=== PATIENT | male | born 1965 | race Two or more races ===

== ENCOUNTER 2024-05-01 23:28 | Emergency (ER) | payer MEDICAID, SELFPAY ==
[2024-05-02 00:04] VITALS: BP 139/80; PULSE 80; RESP 18; TEMP 37; O2SAT 98
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
[2024-05-02] MEDS: CYCLObenzaPRINE 5 MG TABLET PO (00:46)
[2024-05-02] MEDS: ACETAMINOPHEN 325 MG TABLET 650 MG PO (00:46)
[2024-05-02] MEDS: LIDOCAINE 5% 1 PATCH TOP (00:47)
[2024-05-02 01:02] VITALS: RESP 18
== END 2024-05-02 01:02 | disposition home or self-care (01) ==
LOC: SERX 05-02 01:14
PROVIDERS: Emergency Provider Emergency Medicine
DX: S13.4XXA Sprain of ligaments of cervical spine, initial encounter (principal); M62.838 Other muscle spasm; M25.531 Pain in right wrist; V43.52XA Car driver injured in collision with other type car in traffic accident, initial encounter; E11.9 Type 2 diabetes mellitus without complications
CPT/HCPCS: 73110; 99283; J3490; A9270

== ENCOUNTER 2024-09-27 20:13 | Inpatient (IN) | payer MEDICAID, SELFPAY ==
[2024-09-27 20:41] VITALS: BP 121/74; PULSE 89; RESP 18; TEMP 37.9; O2SAT 95
--- NOTE | 2024-09-27 20:56 | XR_ITS ---
Examination: AP chest single view. TECHNIQUE: AP portable upright chest single view Date and time: September 27, 2024 2117 hours INDICATIONS: Fever chest pain and SOB today. FINDINGS: Normal heart size. No pneumonia or pulmonary edema. The osseous structures are intact IMPRESSION: No active disease.
--- NOTE | 2024-09-27 20:57 | EDNOTE_ITS ---
ED Male Genitalurinary RME/HPI General Chief complaint: Urogenital-Male Stated complaint: pain/blood during urination Time Seen by Provider: 09/27/24 20:52 Arrival date/time: 09/27/24 20:13 RME / HPI RME / HPI Narrative: See [facility] for Dr. Berry's HPI Documentation Related Data Home Medications ?Medication ?Instructions ?Recorded ?Confirmed metformin 1,000 mg tablet 1,000 mg PO BID 03/31/18 Previous Rx's ?Medication ?Instructions ?Recorded aspirin 81 mg tablet,delayed 81 mg PO QDAY #30 tabs release (Aspir-Low) metformin 1,000 mg tablet 1,000 mg PO BID #60 tabs ciprofloxacin HCl 500 mg tablet 500 mg PO BID #14 tabs 08/05/23 (Cipro) cyclobenzaprine 5 mg tablet 5 mg PO TID PRN muscle spa sm #14 05/02/24 tabs Allergies Allergy/AdvReac Type Severity Reaction Status Date / Time No Known Allergies Allergy Verified 05/01/24 23:31 Review of Systems Review of Systems Systems Reviewed: All systems reviewed, normal except as documented Past Medical History Past Medical History ENDOCRINE: Positive Endocrine Disorders and Diabetes Mellitus Type 2 ED Exam Narrative Physical exam: See MDM for Dr. Berry's Physical Exam Documentation. Course Course Course Narrative: CXR is ordered for determining the etiology of shortness of breath. Quality Measures none Orders Category Date Time Status Bedside COVID-19 Antigen Test NOW Care 09/27/24 20:54 Active Bedside Influenza A&B Antigen Test NOW Care 09/27/24 20:54 Completed COVID-19 Screening Questionnaire NOW Care 09/28/24 02:17 Active Decision to Admit X1 Care 09/28/24 02:17 Active Saline [Insert IV] NOW Care 09/27/24 20:[address] abdomen pelvis wo con Stat Exams 09/27/24 23:09 Completed XR chest 1V portable Stat Exams 09/27/24 20:56 Completed Bilirubin,Direct Stat Lab 09/27/24 21:39 Completed Blood Culture (Lab) Stat Lab 09/27/24 21:39 Received CBC Stat Lab 09/27/24 21:39 Completed CMP [Comprehensive Metabolic Panel] Stat Lab 09/27/24 21:39 Completed CRP [C-Reactive Protein] Stat Lab 09/27/24 21:39 Completed ESR [Sed Rate (ESR)] Stat Lab 09/27/24 21:39 Completed Lactate (Lactic Acid) Stat Lab 09/27/24 21:39 Completed Magnesium Stat Lab 09/27/24 21:39 Completed Procalcitonin Stat Lab 09/27/24 21:39 Completed Urinalysis, C/S if Indicated Stat Lab 09/27/24 21:06 Completed Urine Culture Stat Lab 09/27/24 21:06 Received Acetaminophen Tab [Tylenol Tab] Med 09/27/24 20:55 Discontinued 650 mg PO X1 ONE Ketorolac Inj [Toradol Inj] Med 09/27/24 20:55 Discontinued 30 mg IVP X1 ONE Ondansetron Inj [Zofran Inj] Med 09/27/24 20:55 Discontinued 4 mg IVP X1 ONE Sodium Chloride 0.9% 1000 ml [Ns] 1,000 ml Med 09/27/24 20:55 Discontinued IV 999 mls/hr Sodium Chloride 0.9% 1000 ml [Ns] 1,000 ml Med 09/27/24 23:10 Discontinued IV 999 mls/hr cefTRIAXone/D5w 1gm IV premix [Rocephin/D5w 1gm IV Med 09/27/24 20:55 Discontinued premix] 1 gm in 50 ml IV X1 Vital Signs Vital signs: Vital Signs Temperature 100.3 F 09/27/24 20:41 Pulse Rate 89 09/27/24 20:41 Respiratory Rate 18 09/27/24 20:41 Blood Pressure 121/74 09/27/24 20:41 Pulse Oximetry (%) 95 09/27/24 20:41 Oxygen Delivery Method Room Air 09/27/24 20:41 Urogenital - Male MDM Narrative MDM Narrative:: Scribe Attestation: IBetty, am scribing for and in the presence of Dr. Berry. This section includes all my notes and documentations, including HPI, PE, and ED course. Gil Berry MD HPI: 59 y/o male with Hx of Type II DM here with several days of subjective fever, chills, body aches, malaise, dysuria, hematuria, and flank pain. No other complaints. ROS: All negative except as documented in HPI. Physical Exam: General: Alert and oriented. Appearance no malaise noted. Fever noted. Eyes: Conjunctivae and lids clear. ENT: No nasal congestion. Pharynx normal. TM normal bilaterally. Neck: Supple. Heart: RRR. Lungs: No respiratory distress. Good air movement. No rhonchi, wheezing, rales. Abdomen: Soft and nontender. Normal bowel sounds. No distension. No rebound or guarding. Back: Right CVA tenderness. Skin: Warm and dry. Neuro: Alert and oriented X 3. I reviewed all diagnostic test results: My interpretation of the chest x-ray is: NAD. My review of the Abdomen/Pelvis CT report is: Right pyelonephritis. Blood tests remarkable for WBC 11.7, ESR 36, CRP 11.5, UA showed positive nitrite, positive leukocyte esterase, 44 RBC, 227 WBC. Covid/Influenza: Negative. At this point, diagnoses include: Pyelonephritis Treatment here included: IVF, Tylenol 650 mg, Toradol 30 mg, Zofran 4 mg, Rocephin 1 g. Some improvement noted. 0128: I discussed the case with our hospitalist. About the presentation and exam and diagnostics and treatments here. And need of further care in the hospital. Agreed to accept the patient. Gil Berry MD Patient data External records reviewed:: [facility] previous records (Reviewed prior ED records from 05/02/24. Patient was seen for Acute pain of right wrist.) Clinical information provided by:: patient and family (Daughter) Social determinants that could affect healthcare access:: none Patient has the following chronic illnesses:: Type II DM How is presenting disease/condition affected by chronic disease/condition?: exacerbated by Evaluation data The following diagnostics were reviewed and interpreted by me:: lab results and radiology exam(s) Lab and/or radiology exams considered but not ordered:: None Interpretation Summary: I reviewed all diagnostic test results: My interpretation of the chest x-ray is: NAD. My review of the Abdomen/Pelvis CT report is: Right pyelonephritis. Blood tests remarkable for WBC 11.7, ESR 36, CRP 11.5, UA showed positive nitrite, positive leukocyte esterase, 44 RBC, 227 WBC. Covid/Influenza: Negative. Medications / Prescriptions Medications or Prescriptions considered but not ordered:: None Medication administrations:: Medication Administration History Discontinued Medications Acetaminophen (Acetaminophen 325 Mg Tablet) 650 mg PO X1 ONE Stop: 09/27/24 20:56 Last Admin: 09/27/24 22:05 Dose: 650 mg Documented By: [email or web address] Sodium Chloride (Ns) 1,000 mls @ 999 mls/hr IV .Q1H1M ONE Stop: 09/27/24 21:55 Last Infusion: 09/27/24 23:22 Dose: Infused Documented By: [email or web address] Admin: 09/27/24 22:04 Dose: 999 mls/hr Documented By: GUERITA Ceftriaxone Sodium/Dextrose (Rocephin/D5w 1gm Iv Premix) 1 gm in 50 mls @ 100 mls/hr IV X1 ONE Stop: 09/27/24 21:24 Last Infusion: 09/27/24 22:34 Dose: Infused Documented By: [email or web address] Admin: 09/27/24 22:04 Dose: 100 mls/hr Documented By: [email or web address] Sodium Chloride (Ns) 1,000 mls @ 999 mls/hr IV .Q1H1M ONE Stop: 09/28/24 00:10 Last Infusion: 09/28/24 02:12 Dose: Infused Documented By: Admin: 09/28/24 00:37 Dose: 999 mls/hr Documented By: BD Ketorolac Tromethamine (Ketorolac Inj 30 Mg/Ml Vial) 30 mg IVP X1 ONE Stop: 09/27/24 20:56 Last Admin: 09/27/24 22:05 Dose: 30 mg Documented By: GUERITA Ondansetron HCl (Ondansetron Inj 2 Mg/Ml Inj 2 Ml) 4 mg IVP X1 ONE; Protocol Stop: 09/27/24 20:56 Last Admin: 09/27/24 22:05 Dose: 4 mg Documented By: [email or web address] IVF, Tylenol 650 mg, Toradol 30 mg, Zofran 4 mg, Rocephin 1 G Consultations Consultation(s) initiated? (list below): Yes Consultation #1 (Physician, Specialty, Details): I discussed the case with our hospitalist. About the presentation and exam and diagnostics and treatments here. And need of further care in the hospital. Agreed to accept the patient. Time: 01:28 Diagnosis Urogenital Male Differential Diagnosis: urinary tract infection, urethritis, epididymitis, prostatitis, acute retention of urine, inguinal hernia and other (Pneumonia, pyelonephritis, sepsis, COVID, influenza) Most likely diagnosis given after review of the tests above:: Acute Pyelonephritis Admission Indicated Admission indicated?: indicated Explain why admission is indicated or not indicated:: Acute Pyelonephritis Admission Request Was there a request for admission?: Yes Admission Attestation Admission request attestation: Discussed case with Hospitalist service regarding admission. Discussed patients ED course, exam findings, labs, and radiology results. Agreed to accept the patient for admission. Disposition Plan Disposition Plan: Admit Discharge Plan Plan Patient Disposition: Admit Acute Care w/in Hospital Prescriptions/Referrals Prescriptions/Med Rec: No Action metformin 1,000 mg Tablet 1,000 mg PO BID aspirin [Aspir-Low] 81 mg Tablet,Delayed Release (Dr/Ec) 81 mg PO QDAY Qty: 30 0RF metformin 1,000 mg tablet 1,000 mg PO BID Qty: 60 0RF cyclobenzaprine 5 mg tablet 5 mg PO TID PRN (Reason: muscle spasm) Qty: 14 0RF ciprofloxacin HCl [Cipro] 500 mg tablet 500 mg PO BID Qty: 14 0RF Referrals: No Primary/Family,Physician [Primary Care Provider] - In 1 week Problem List Clinical Impression: Acute pyelonephritis Patient/Caregiver Discharge Instructions Print Language: Uzbek Stand Alone Forms: Marie Award Info., Patient Portal Info Letter
[2024-09-27 21:33] LABS: Collection Type, Urine Clean Catch
[2024-09-27 21:43] LABS: Bilirubin,Urine Negative (Negative); Blood,Urine 2+ (Negative); Clarity,Urine Turbid (Clear/Hazy); Color,Urine Yellow (Lt Yel-Yel); Glucose, Urine 4+ (Negative); Ketones,Urine Negative (Negative); Leukocyte Esterase,Urine Positive (Negative); Nitrite,Urine Positive (Negative); PH,Urine 5.5 (5.0-7.0); Protein,Urine 1+ (Neg - Trace); RBC,Urine 44 /hpf (0-3); Specific Gravity,Urine 1.034 (1.001-1.035); Squamous Epithelial Cell,Urine < 1 /hpf (0-5); Urobilinogen,Urine Negative mg/dL (0.0-1.0); WBC,Urine 227 /hpf (0-5)
[2024-09-27 21:44] VITALS: BMI 25.0
[2024-09-27 21:49] LABS: Lactate (Lactic Acid) 0.9 mMol/L (0.4-2.0)
[2024-09-27 21:55] LABS: Culture Indicated,Urine Yes
[2024-09-27 21:57] LABS: Basophils # (Auto) 0.1 Thou/mm3 (0.0-0.2); Basophils % (Auto) 1 % (0-2.5); Eosinophils # (Auto) 0.1 Thou/mm3 (0.0-0.5); Eosinophils % (Auto) 1 % (0-10); Hematocrit 40.2 % (41.0-53.0); Hemoglobin 13.8 g/dL (13.5-16.0); Immature Granulocytes Auto 0.04 Thou/mm3 (0.00-0.00); Lymphocytes # (Auto) 1.7 Thou/mm3 (1.0-4.8); Lymphocytes % (Auto) 14 % (10-50); Mean Corpuscular HGB Conc 34.3 g/dl (31.0-37.0); Mean Corpuscular Hemoglobin 30.4 pg (25.0-35.0); Mean Corpuscular Volume 89 fL (80-100); Monocytes # (Auto) 1.3 Thou/mm3 (0.0-0.8); Monocytes % (Auto) 11 % (0-12); Neutrophils # (Auto) 8.6 Thou/mm3 (1.8-7.7); Neutrophils % (Auto) 73 % (37-80); Nucleated Red Blood Cell # 0.00 Thou/mm3 (0.00-0.00); Nucleated Red Blood Cell % 0 /100 WBC (0); Platelet Count 237 Thou/mm3 (140-440); RDW Standard Deviation 42.1 fL (35.1-43.9); Red Blood Count 4.54 Miln/mm3 (4.50-5.90); White Blood Count 11.7 Thou/mm3 (3.8-10.6)
[2024-09-27] MEDS: cefTRIAXone/D5w 1gm IV premix 1 GM/50 ML BAG IV (22:04)
[2024-09-27] MEDS: SODIUM CHLORIDE 0.9% 1000 ML 1,000 ML 999 ML IV (22:04)
[2024-09-27 22:05] VITALS: TEMP 37.4
[2024-09-27] MEDS: KETOROLAC INJ 30 MG/ML VIAL IVP (22:05)
[2024-09-27] MEDS: ONDANSETRON INJ 2 MG/ML INJ 2 ML 4 MG IVP (22:05)
[2024-09-27] MEDS: ACETAMINOPHEN 325 MG TABLET 650 MG PO (22:05)
[2024-09-27 22:39] LABS: Alanine Aminotransferase 22 U/L (10-49); Albumin, Serum 4.5 gm/dL (3.5-5.0); Albumin/Globulin Ratio 1.4 (1.2-2.2); Alkaline Phosphatase 67 U/L (46-116); Anion Gap 9 (7-16); Aspartate Amino Transferase 20 U/L (0-34); BUN/Creatinine Ratio 13 Ratio (12-20); Bilirubin,Direct 0.2 mg/dL (0.0-0.3); Bilirubin,Total 0.6 mg/dL (0.3-1.2); Blood Urea Nitrogen 14 mg/dL (9-23); Calcium 9.9 mg/dL (8.3-10.6); Calcium (Corrected) 9.9 mg/dL (8.5-10.1); Carbon Dioxide 27.5 mMol/L (20.0-31.0); Chloride 102 mMol/L (98-107); Creatinine (Component) 1.1 mg/dL (0.6-1.3); Estimated Creatinine Clearance 68.4 mL/min (>60); Globulin 3.2 gm/dL (2.3-3.5); Glucose 127 mg/dL (74-106); Magnesium 2.0 mg/dL (1.6-2.6); Osmolality,Calculated 278 (275-295); Potassium 4.4 mMol/L (3.4-5.1); Procalcitonin 0.39 ng/ml (0.0-0.49); Sodium 138 mMol/L (136-145); Total Protein 7.7 gm/dL (5.7-8.2); eGFR > 60 See Note
[2024-09-27 22:44] LABS: C-Reactive Protein 11.5 mg/dL (0.0-0.9)
[2024-09-27 22:55] LABS: Sed Rate (ESR) 36 mm/hr (0-20)
--- NOTE | 2024-09-27 23:09 | XR_ITS ---
Examination: CT abdomen and pelvis without contrast. Coronal 3-D reconstructions. Sagittal 2-D reconstructions. Date and time of exam:September 27, 2024 1154 hours INDICATIONS: Onset flank pain fever today CTDI: vol (mGy): 7.14 DLP: (mGycm): 397 Technique: Axial images of the abdomen have been obtained, 3 mm slice thickness Intravenous contrast material has not been administered. Low dose protocols were performed. One or more of the following dose reduction techniques were used; automated exposure control, adjustment of the mA and/or KV according to patient size, use of iterative reconstruction technique. Findings: No focal liver or splenic lesions No gallstones No pancreatic or adrenal mass [id number] renal parenchymal scar formation Mild wall thickening right renal pelvicalyceal system and right ureter, right pyelonephritis pattern No renal or ureteral calculi Aorta normal size No bowel obstruction Normal appendix Urinary bladder intact No significant prostatomegaly Advanced disc narrowing L5-S1 IMPRESSION: Findings suspicious for right pyelonephritis
[2024-09-27 23:22] VITALS: TEMP 36.6
[2024-09-28] VITALS (10 sets, daily range): BP systolic 106–144; BP diastolic 48–88; PULSE 64–90; RESP 16–97; TEMP 36.1–37.2; O2SAT 97–99; BMI 27.8
[2024-09-28] MEDS: SODIUM CHLORIDE 0.9% 1000 ML 1,000 ML 999 ML IV (00:37)
--- NOTE | 2024-09-28 02:31 | ESHP_ITS ---
Documentation for date of: 09/28/24 [facility] History of Present Illness Chief complaint: Painful urination and visible blood in urine for the past 2 days. History of present illness: 51-year-old male with history of type 2 diabetes mellitus who presents with 2 days of dysuria, 2 episodes of gross hematuria, and subjective fever. He reports that symptoms began Wednesday night (09/26/2024) and include burning with urination, 2 streaks of red blood in the toilet bowl following urination, and general malaise with mild bodyaches and night sweats. He previously experienced bilateral flank pain (rated 6/10) that has since resolved. He denies any current suprapubic pain, back pain, nausea, vomiting, chills, rigors, or confusion. He has not had similar symptoms in many years (possibly 1 UTI 20-30 years ago) and has not taken any of his antibiotics. Per daughter, patient was told earlier this year by his PCP in [place] that he had an enlarged prostate. He has never undergone prostate surgery or urologic procedures. ED Course: Initial evaluation notable for stable vitals, UA concerning for UTI, and CT abdomen/pelvis showing findings suspicious for right pyelonephritis. Labs showed mild leukocytosis and elevated inflammatory markers. Patient received IV fluids, ceftriaxone, acetaminophen, and symptom management. He remained hemodynamically stable and improved symptomatically. Blood and urine cultures were sent. ROS: Negative unless stated above Past Medical History: * Type 2 Diabetes Mellitus * Benign prostatic hyperplasia (per history) Past Surgical History: None reported Medications: Oral medication for DM (pending med rec's) Allergies: No known drug allergies Family History: Non-contributory Social History: * No tobacco, alcohol, or drug use * Lives with daughter * Employed as vacuum truck driver * No recent travel or known sick contacts Exam Vital Signs Temp Pulse Resp BP Pulse Ox O2 Del Method 97.7 F 90 20 106/69 99 Room Air 09/28/24 02:24 09/28/24 02:24 09/28/24 02:24 09/28/24 02:24 09/28/24 02:24 09/28/24 02:24 Narrative Exam General: Alert, comfortable, no acute distress HEENT: PERRLA, no conjunctival injection, mucosa moist Neck: Supple, no LAD Lungs: Clear to auscultation bilaterally Heart: RRR, no murmurs Abdomen: Soft, NT, no masses or suprapubic tenderness Back: No CVA tenderness Extremities: No edema Neuro: AOx3, no focal deficits Skin: Warm, dry, no rashes Results: Labs 09/27/24 21:39 09/27/24 21:39 Labs: Short CBC 09/27/24 Range/Units 21:39 WBC 11.7 H (3.8-10.6) Thou/mm3 Hgb 13.8 (13.5-16.0) g/dL Hct 40.2 L (41.0-53.0) % Plt Count 237 (140-440) Thou/mm3 BMP 09/27/24 21:39 Sodium 138 Potassium 4.4 Chloride 102 Carbon Dioxide 27.5 BUN 14 Creatinine 1.1 Glucose 127 H Calcium 9.9 Liver Function 09/27/24 Range/Units 21:39 Total Bilirubin 0.6 (0.3-1.2) mg/dL Direct Bilirubin 0.2 (0.0-0.3) mg/dL AST 20 (0-34) U/L ALT 22 (10-49) U/L Alkaline Phosphatase 67 (46-116) U/L Albumin 4.5 (3.5-5.0) gm/dL Urine 09/27/24 Range/Units 21:06 Urine Color Yellow (Lt Yel-Yel) Urine Clarity Turbid A (Clear/Hazy) Urine pH 5.5 (5.0-7.0) Ur Specific [place] 1.034 (1.001-1.035) Urine Protein 1+ A (Neg - Trace) Urine Glucose (UA) 4+ A (Negative) Quality Measures Quality Measures VTE prophylaxis Medications Home Medications and Allergies Home Medications ?Medication ?Instructions ?Recorded ?Confirmed ?Type metformin 1,000 mg tablet 1,000 mg PO BID 03/31/18 History Allergies Allergy/AdvReac Type Severity Reaction Status Date / Time No Known Allergies Allergy Verified 05/01/24 23:31 Visit Medications Acetaminophen (Acetaminophen 325 Mg Tablet) 650 mg PO Q6H PRN PRN Reason: Fever >100.4 Stop: 10/28/24 02:22 Acetaminophen (Acetaminophen 325 Mg Tablet) 650 mg PO Q6H PRN PRN Reason: PAIN SCALE 1-3 (mild Stop: 10/28/24 02:22 Hydrocodone Bitart/Acetaminophen (Hydrocodone/Apap 5/325 Tablet) 1 tab PO Q4HR PRN PRN Reason: PAIN SCALE 4-10(Mod-Sev Stop: 10/03/24 02:22 Dextrose (Dextrose 50%-Water Inj 50 Ml Syringe) 25 ml IV Q15MIN PRN PRN Reason: BG 50-70 responsive npo pt Stop: 10/28/24 02:22 Dextrose (Dextrose 50%-Water Inj 50 Ml Syringe) 50 ml IV Q15MIN PRN PRN Reason: BG <50 OR BG <70 & pt unresponsive Stop: 10/28/24 02:22 Enoxaparin Sodium (Enoxaparin Sod Inj 40 Mg/0.4 Ml Syringe) 40 mg SC QDAY KIRBY Stop: 10/12/24 08:59 Glucagon (Glucagon Inj 1 Mg Vial) 1 mg IM Q15MIN PRN PRN Reason: BG <70, and no IV access Ceftriaxone Sodium/Dextrose (Rocephin/D5w 1gm Iv Premix) 1 gm in 50 mls @ 100 mls/hr IV QDAY KIRBY Stop: 10/05/24 02:26 Insulin Human Lispro (Insulin Lispro (Admelog) 1 Unit/0.01 Ml Unit) 0 unit SC AC [facility]; Protocol Stop: 10/28/24 07:29 Ondansetron HCl (Ondansetron Inj 2 Mg/Ml Inj 2 Ml) 4 mg IVP Q6H PRN; Protocol PRN Reason: NAUSEA OR VOMITING Stop: 10/28/24 02:22 Discontinued Medications Acetaminophen (Acetaminophen 325 Mg Tablet) 650 mg PO X1 ONE Stop: 09/27/24 20:56 Last Admin: 09/27/24 22:05 Dose: 650 mg Sodium Chloride (Ns) 1,000 mls @ 999 mls/hr IV .Q1H1M ONE Stop: 09/27/24 21:55 Last Infusion: 09/27/24 23:22 Dose: Infused Ceftriaxone Sodium/Dextrose (Rocephin/D5w 1gm Iv Premix) 1 gm in 50 mls @ 100 mls/hr IV X1 ONE Stop: 09/27/24 21:24 Last Infusion: 09/27/24 22:34 Dose: Infused Sodium Chloride (Ns) 1,000 mls @ 999 mls/hr IV .Q1H1M ONE Stop: 09/28/24 00:10 Last Infusion: 09/28/24 02:12 Dose: Infused Ketorolac Tromethamine (Ketorolac Inj 30 Mg/Ml Vial) 30 mg IVP X1 ONE Stop: 09/27/24 20:56 Last Admin: 09/27/24 22:05 Dose: 30 mg Ondansetron HCl (Ondansetron Inj 2 Mg/Ml Inj 2 Ml) 4 mg IVP X1 ONE; Protocol Stop: 09/27/24 20:56 Last Admin: 09/27/24 22:05 Dose: 4 mg Assessment & Plan Plan 59-year-old male with type 2 diabetes presenting with dysuria, hematuria, and prior flank pain found to have UA and imaging concerning for pyelonephritis, now improving after initial ED management. # Pyelonephritis Patient presents with dysuria, transient hematuria, and prior bilateral flank pain, now resolved. UA positive for nitrites, leukocyte esterase, and hematuria CT A/P concerning for right pyelonephritis. Afebrile, hemodynamically stable, tolerating PO. Plan: * Continue ceftriaxone 1g IV q24h * Monitor cultures and reassess daily * Monitor for signs of clinical deterioration * Encourage oral hydration # Type 2 Diabetes Mellitus No known complications Current meds unknown. Not on insulin Plan: * Check glucose AC/HS * Sliding scale insulin PRN * Reconcile home meds once available # Benign Prostatic Hyperplasia History of enlarged prostate per daughter, reportedly diagnosed by physician in [place] (not current PCP). No current obstructive symptoms. Hematuria may be from infection but BPH may contribute. Plan: * Follow-up with PCP post-discharge * Recommend outpatient urology referral for hematuria work-up and BPH evaluation after resolution of infection Health Maintenance: Disposition: Admitted to [facility] Activity: As tolerated Diet: Carb consistent Code Status: Full DVT prophylaxis: Lovenox GI prophylaxis: Not indicated at this time ----- Plan discussed with attending physician Dr. Linette Montenegro MD PGY-1 Internal Medicine Attending Provider Attestation/Addendum I have examined the patient, reviewed labs and imaging findings, discussed the case with the resident(s), and reviewed entered orders. I agree with the plan of care as outlined in this note, with these additional summaries/recommendations: After examination of the patient and review of the clinical data, I feel that this patient needs admission to the hospital for further treatment and evaluation. Patient is a 59-year-old male with a medical history of diabetes mellitus type 2 and BPH presents to [facility] emergency department on 09/28/2024 with chief complaints of urinary symptoms. Patient and patient's daughter seen at bedside. Patient endorses dysuria, increased urinary frequency, and 2 episodes of gross hematuria yesterday. He reports hematuria has resolved. Urinalysis positive for nitrites, leukocyte esterase, 44 RBCs, 227 WBCs, and no bacteria. CT of abdomen and pelvis consistent with right-sided pyelonephritis. Urine and blood cultures taken in the emergency room, follow-up results when available. Start IV antibiotics. Tylenol as needed for fever. Patient reports he was diagnosed with BPH in [place]. Discussed that his episodes of gross hematuria are most likely related to urinary tract infection although he will need a urology referral outpatient. For diabetes mellitus type 2 start insulin sliding scale with Accu-Cheks. Diabetic diet. Target blood sugar of 140-180 while hospitalized. Order A1c. Patient updated on the plan and in agreement. All questions answered to satisfaction. Please see residents note for additional details and management. Dr. Linette MD
[2024-09-28 04:57] LABS: Basophils # (Auto) 0.1 Thou/mm3 (0.0-0.2); Basophils % (Auto) 1 % (0-2.5); Eosinophils # (Auto) 0.1 Thou/mm3 (0.0-0.5); Eosinophils % (Auto) 1 % (0-10); Hematocrit 36.9 % (41.0-53.0); Hemoglobin 12.9 g/dL (13.5-16.0); Immature Granulocytes Auto 0.02 Thou/mm3 (0.00-0.00); Lymphocytes # (Auto) 1.9 Thou/mm3 (1.0-4.8); Lymphocytes % (Auto) 21 % (10-50); Mean Corpuscular HGB Conc 35.0 g/dl (31.0-37.0); Mean Corpuscular Hemoglobin 31.0 pg (25.0-35.0); Mean Corpuscular Volume 89 fL (80-100); Monocytes # (Auto) 1.4 Thou/mm3 (0.0-0.8); Monocytes % (Auto) 15 % (0-12); Neutrophils # (Auto) 5.7 Thou/mm3 (1.8-7.7); Neutrophils % (Auto) 63 % (37-80); Nucleated Red Blood Cell # 0.00 Thou/mm3 (0.00-0.00); Nucleated Red Blood Cell % 0 /100 WBC (0); Platelet Count 202 Thou/mm3 (140-440); RDW Standard Deviation 41.9 fL (35.1-43.9); Red Blood Count 4.16 Miln/mm3 (4.50-5.90); White Blood Count 9.2 Thou/mm3 (3.8-10.6)
[2024-09-28 05:15] LABS: Anion Gap 8 (7-16); Calcium 8.7 mg/dL (8.3-10.6); Carbon Dioxide 25.0 mMol/L (20.0-31.0); Chloride 107 mMol/L (98-107); Creatinine (Component) 0.9 mg/dL (0.6-1.3); Estimated Creatinine Clearance 83.6 mL/min (>60); Glucose 97 mg/dL (74-106); Potassium 3.9 mMol/L (3.4-5.1); Sodium 140 mMol/L (136-145); eGFR > 60 See Note
[2024-09-28 05:16] LABS: BUN/Creatinine Ratio 14 Ratio (12-20); Blood Urea Nitrogen 13 mg/dL (9-23); Magnesium 1.9 mg/dL (1.6-2.6); Osmolality,Calculated 279 (275-295)
[2024-09-28] MEDS: ENOXAPARIN SOD INJ 40 MG/0.4 ML SYRINGE SC (08:13)
--- NOTE | 2024-09-28 08:17 | ESPR_ITS ---
<Statement entered by Francisco Lopez MD - 09/28/24 17:17> Senior Resident Attestation: I supervised/discussed management plan with journalism internship physician Dr. West, and was involved in the care of this patient. I personally saw and examined the patient and discussed the assessment and plan with the entire medicine team, including my attending. I agree with the assessment and plan as documented. Patient reports no new complaints. His blood and urine cultures are pending. Will continue current management with IV antibiotics and monitor patient. Patient's care was discussed with attending physician, Dr. Nichols. Francisco Lopez MD PGY-3. Documentation for date of: 09/28/24 Subjective Subjective Interval history: 09/28/24: SHANTI. VSS. Patient was evaluated and examined at bedside. Patient reports improvement of dysuria and hematuria. Otherwise patient is asymptomatic. Exam Vital Signs Temp Pulse Resp BP Pulse Ox O2 Del Method 98.6 F 78 19 118/72 98 Room Air 09/28/24 07:20 09/28/24 07:20 09/28/24 07:20 09/28/24 07:20 09/28/24 07:20 09/28/24 07:20 Narrative Exam General: Alert, comfortable, no acute distress HEENT: No conjunctival injection, mucosa moist Neck: Supple, no LAD Lungs: Clear to auscultation bilaterally Heart: RRR, no murmurs Abdomen: Soft, nontender to palpation, no masses or suprapubic tenderness Back: No CVA tenderness Extremities: No edema Neuro: AOx3, no focal deficits Skin: Warm, dry, no rashes Objective Labs 09/29/24 04:42 09/29/24 04:42 Labs: Laboratory Results - last 24 hr 09/27/24 09/27/24 09/28/24 21:06 21:39 04:28 WBC 11.7 H 9.2 RBC 4.54 4.16 L Hgb 13.8 12.9 L Hct 40.2 L 36.9 L MCV 89 89 MCH 30.4 31.0 MCHC 34.3 35.0 RDW Std Deviation 42.1 41.9 Plt Count 237 202 D Neut % (Auto) 73 63 Lymph % (Auto) 14 21 [place] % (Auto) 11 15 H Eos % (Auto) 1 1 Baso % (Auto) 1 1 Neut # (Auto) 8.6 H 5.7 Lymph # (Auto) 1.7 1.9 Rock # (Auto) 1.3 H 1.4 H Eos # (Auto) 0.1 0.1 Baso # (Auto) 0.1 0.1 Immature Gran # (Auto) 0.04 H 0.02 H Absolute Nucleated RBC 0.00 0.00 Immature Gran % 0 0 Nucleated RBC % 0 0 ESR 36 H Sodium 138 140 Potassium 4.4 3.9 D Chloride 102 107 Carbon Dioxide 27.5 25.0 Anion Gap 9 8 BUN 14 13 Creatinine 1.1 0.9 Estim Creat Clear Calc 68.4 83.6 eGFR > 60 > 60 BUN/Creatinine Ratio 13 14 Glucose 127 H 97 Calculated Osmolality 278 279 Lactic Acid 0.9 Calcium 9.9 8.7 Corrected Calcium 9.9 Magnesium 2.0 1.9 Total Bilirubin 0.6 Direct Bilirubin 0.2 AST 20 ALT 22 Alkaline Phosphatase 67 C-Reactive Prot, Quant 11.5 H Total Protein 7.7 Albumin 4.5 Globulin 3.2 Albumin/Globulin Ratio 1.4 Procalcitonin 0.39 Ur Collection Type Clean Catch Urine Color Yellow Urine Clarity Turbid A Urine pH 5.5 Ur Specific [place] 1.034 Urine Protein 1+ A Urine Glucose (UA) 4+ A Urine Ketones Negative Urine Blood 2+ A Urine Nitrite Positive Urine Bilirubin Negative Urine Urobilinogen (Auto) Negative Ur Leukocyte Esterase Positive Urine RBC 44 H Urine WBC 227 H Ur Squamous Epith Cells < 1 Urine Bacteria None Ur Culture Indicated? Yes Quality Measures Quality Measures VTE prophylaxis Assessment & Plan Assessment Current Active Medications: Generic Name Dose Route Start Last Admin Trade Name Priti PRN Reason Stop Dose Admin Acetaminophen 650 mg 09/28/24 02:23 Acetaminophen 325 Mg Tablet PO 10/28/24 02:22 Q6H PRN Fever >100.4 Acetaminophen 650 mg 09/28/24 02:23 Acetaminophen 325 Mg Tablet PO 10/28/24 02:22 Q6H PRN PAIN SCALE 1-3 (mild Hydrocodone Bitart/Acetaminophen 1 tab 09/28/24 02:23 Hydrocodone/Apap 5/325 Tablet PO 10/03/24 02:22 Q4HR PRN PAIN SCALE 4-10(Mod-Sev Dextrose 25 ml 09/28/24 02:23 Dextrose 50%-Water Inj 50 Ml Syringe IV 10/28/24 02:22 Q15MIN PRN BG 50-70 responsive npo pt Dextrose 50 ml 09/28/24 02:23 Dextrose 50%-Water Inj 50 Ml Syringe IV 10/28/24 02:22 Q15MIN PRN BG <50 OR BG <70 & pt unresponsive Enoxaparin Sodium 40 mg 09/28/24 09:00 09/28/24 08:13 Enoxaparin Sod Inj 40 Mg/0.4 Ml Syringe SC 10/12/24 08:59 40 mg QDAY KIRBY Administration Glucagon 1 mg 09/28/24 02:23 Glucagon Inj 1 Mg Vial IM Q15MIN PRN BG <70, and no IV access Ceftriaxone Sodium/Dextrose 1 gm in 50 mls @ 100 mls/hr 09/28/24 21:00 Rocephin/D5w 1gm Iv Premix IV 10/05/24 20:59 2100 KIRBY Insulin Human Lispro 0 unit 09/28/24 07:30 09/28/24 07:31 Insulin Lispro (Admelog) 1 Unit/0.01 Ml Unit SC 10/28/24 07:29 Not Given AC [facility] Protocol Ondansetron HCl 4 mg 09/28/24 02:23 Ondansetron Inj 2 Mg/Ml Inj 2 Ml IVP 10/28/24 02:22 Q6H PRN NAUSEA OR VOMITING Protocol Plan 59M with PMH of T2DM presented with dysuria, hematuria, and prior flank pain x2days found to have UA and imaging concerning for right pyelonephritis, now improving after initial ED management. #Pyelonephritis #Complicated UTI Patient presents with dysuria, transient hematuria, and prior bilateral flank pain, now resolved. UA positive for nitrites, leukocyte esterase, WBC, and hematuria CT A/P concerning for right pyelonephritis. Afebrile, hemodynamically stable, tolerating PO. WBC 11.7--> 9.2 We will treat the patient for pyelonephritis and complicated UTI due to gender and diabetes. Plan: - Increase ceftriaxone to 2g IV qday. - Pending cultures and reassess daily - Monitor for signs of clinical deterioration - Encourage oral hydration # Type 2 Diabetes Mellitus No known complications Current meds unknown. Not on insulin A1C: 6.3% Plan: - Check glucose AC/HS - SSI # Benign Prostatic Hyperplasia History of enlarged prostate per daughter, reportedly diagnosed by physician in [place] (not current PCP). No current obstructive symptoms. Hematuria may be from infection but BPH may contribute. Plan: - Follow-up with PCP post-discharge - Recommend outpatient urology referral for hematuria work-up and BPH evaluation after resolution of infection Health Maintenance: Disposition: Admitted to [facility] Activity: As tolerated Diet: Carb consistent Code Status: Full DVT prophylaxis: Lovenox GI prophylaxis: Not indicated at this time ----- Plan discussed with attending physician Dr. Nichols and senior resident Dr. Jessica West DO, PGY-1 Attending Provider Attestation/Addendum Doretha, Brittany Nichols DO, attest that I was physically present for the moreno portions of the service and evaluated the patient with the resident and I reviewed and discussed the case with the resident and agree with the resident's findings and plans of care as documented above Patient seen and evaluated this afternoon. Patient states he is feeling improved, but worried. He reports resolution of hematuria at this time. Patient had similar symptoms years ago in [place] during which he was told that his prostate was inflamed. He underwent an XR and ultrasound at this time. Patient stated that his symptoms resolved with antibiotics. Patient denies any dysuria, suprapubic pain, straining on urination or increased urinary frequency. No CVA tenderness noted on exam. Will await urine and blood cultures. Continue [facility] rocephin at this time to cover for pyelonephritis.
[2024-09-28 08:34] LABS: Phosphorous 3.3 mg/dL (2.4-5.1)
[2024-09-28 08:39] LABS: Glucose Estimated Average 134 mg/dL (80-131); Hemoglobin A1C 6.3 % Hgb (4.8-6.0)
[2024-09-28] MEDS: cefTRIAXone 2 GM in SODIUM CHLORIDE 0.9% (Popper) 50 ML IV (11:38)
--- NOTE | 2024-09-28 12:08 | PC.CC ---
Patient is a 59 year-old male who presents to the hospital for Dysuria/Heaturia/Bilateral Flank Pain. Nenita RAMIREZ made [id number] contact with patient. RETAIL PERFORMANCE SPECIALIST introduced self, role, and reason for visit.?Patient appeared alert and oriented to self, location, and situation.?At bedside was patient's , Sondra Traore whom patient provided verbal consent to remain in the room during initial assessment. Patient was pleasant and engaged in initial assessment. Patient confirmed information on demographics and reports the physical address is [address] [place] [address] [address] [place] [address]. Patient reports that in the event he is unable to make his own medical decisions his decision maker is his , Sondra Traore . At home patient ambulates independently and is able to complete his own ADLs. Patient does not require any DME. Per patient, for primary care he goes to [facility] on [address] and uses their pharmacy or [facility]. Upon discharge patient plans to return back home. director dental services to follow up with any discharge needs.
--- NOTE | 2024-09-28 14:28 | PC.NURSE ---
HAND OFF REPORT CALLED TO BEHZAD REYES NO FURTHER QUESTIONS
[2024-09-29] VITALS (9 sets, daily range): BP systolic 103–117; BP diastolic 60–64; PULSE 7–86; RESP 16–98; TEMP 36.1–36.6; O2SAT 96–98
[2024-09-29 06:10] LABS: Basophils # (Auto) 0.1 Thou/mm3 (0.0-0.2); Basophils % (Auto) 1 % (0-2.5); Eosinophils # (Auto) 0.1 Thou/mm3 (0.0-0.5); Eosinophils % (Auto) 2 % (0-10); Hematocrit 38.2 % (41.0-53.0); Hemoglobin 13.1 g/dL (13.5-16.0); Immature Granulocytes Auto 0.00 Thou/mm3 (0.00-0.00); Lymphocytes # (Auto) 1.7 Thou/mm3 (1.0-4.8); Lymphocytes % (Auto) 36 % (10-50); Mean Corpuscular HGB Conc 34.3 g/dl (31.0-37.0); Mean Corpuscular Hemoglobin 30.6 pg (25.0-35.0); Mean Corpuscular Volume 89 fL (80-100); Monocytes # (Auto) 0.9 Thou/mm3 (0.0-0.8); Monocytes % (Auto) 20 % (0-12); Neutrophils # (Auto) 2.0 Thou/mm3 (1.8-7.7); Neutrophils % (Auto) 41 % (37-80); Nucleated Red Blood Cell # 0.00 Thou/mm3 (0.00-0.00); Nucleated Red Blood Cell % 0 /100 WBC (0); Platelet Count 232 Thou/mm3 (140-440); RDW Standard Deviation 41.7 fL (35.1-43.9); Red Blood Count 4.28 Miln/mm3 (4.50-5.90); White Blood Count 4.7 Thou/mm3 (3.8-10.6)
[2024-09-29 06:43] LABS: Anion Gap 9 (7-16); BUN/Creatinine Ratio 16 Ratio (12-20); Blood Urea Nitrogen 14 mg/dL (9-23); Calcium 9.2 mg/dL (8.3-10.6); Carbon Dioxide 26.7 mMol/L (20.0-31.0); Chloride 104 mMol/L (98-107); Creatinine (Component) 0.9 mg/dL (0.6-1.3); Estimated Creatinine Clearance 91.1 mL/min (>60); Glucose 113 mg/dL (74-106); Magnesium 2.0 mg/dL (1.6-2.6); Osmolality,Calculated 280 (275-295); Phosphorous 3.4 mg/dL (2.4-5.1); Potassium 4.1 mMol/L (3.4-5.1); Sodium 140 mMol/L (136-145); eGFR > 60 See Note
[2024-09-29] MEDS: ENOXAPARIN SOD INJ 40 MG/0.4 ML SYRINGE SC (09:30)
[2024-09-29] MEDS: PANTOPRAZOLE 40 MG TABLET PO (09:30)
[2024-09-29] MEDS: cefTRIAXone 2 GM in SODIUM CHLORIDE 0.9% (Popper) 50 ML IV (09:31)
--- NOTE | 2024-09-29 09:50 | ESPR_ITS ---
<Statement entered by Jesu Parrish MD - 09/30/24 08:40> Patient was examined and case was reviewed with team including attending physician. Note reviewed, I agree with most of its contents and agree with the patient's care. Patient seen today at the bedside found awake, alert, orientedx3. No overnight events reported. Vital signs stable at this time. No active complaints. He does endorse this is his second UTI this year. On reviewing patients medications patient is taking jardiance which will be discontinued at the time of discharge to prevent recurrent UTI. Will continue with IV antibiotics at this time till cultures speciate and will transition to PO route at that time. Jesu Parrish MD PGY-2 Documentation for date of: 09/29/24 Subjective Subjective Interval history: 09/29/24: SHANTI. VSS. Patient remains asymptomatic and afebrile at this time with no complaints. Advised patient that his Jardiance needs to be stopped given the increased risk of UTI and pyelonephritis and he will need to follow up with his PCP in regards to management of his DM. Exam Vital Signs Temp Pulse Resp BP Pulse Ox O2 Del Method 97.3 F 86 18 109/60 96 Room Air 09/29/24 04:00 09/29/24 04:00 09/29/24 04:00 09/29/24 04:00 09/29/24 04:00 09/29/24 04:00 Narrative Exam General: Alert, comfortable, no acute distress HEENT: No conjunctival injection, mucosa moist Neck: Supple, no LAD Lungs: Clear to auscultation bilaterally Heart: RRR, no murmurs Abdomen: Soft, nontender to palpation, no masses or suprapubic tenderness Back: No CVA tenderness Extremities: No edema Neuro: AOx3, no focal deficits Skin: Warm, dry, no rashes Objective Labs 09/30/24 06:39 09/30/24 06:39 Labs: Laboratory Results - last 24 hr 09/29/24 04:42 WBC 4.7 D RBC 4.28 L Hgb 13.1 L Hct 38.2 L MCV 89 MCH 30.6 MCHC 34.3 RDW Std Deviation 41.7 Plt Count 232 D Neut % (Auto) 41 Lymph % (Auto) 36 [facility] % (Auto) 20 H Eos % (Auto) 2 Baso % (Auto) 1 Neut # (Auto) 2.0 Lymph # (Auto) 1.7 [facility] # (Auto) 0.9 H Eos # (Auto) 0.1 Baso # (Auto) 0.1 Immature Gran # (Auto) 0.00 Absolute Nucleated RBC 0.00 Immature Gran % 0 Nucleated RBC % 0 Sodium 140 Potassium 4.1 Chloride 104 Carbon Dioxide 26.7 Anion Gap 9 BUN 14 Creatinine 0.9 Estim Creat Clear Calc 91.1 eGFR > 60 BUN/Creatinine Ratio 16 Glucose 113 H Calculated Osmolality 280 Calcium 9.2 Phosphorus 3.4 Magnesium 2.0 Quality Measures Quality Measures VTE prophylaxis Assessment & Plan Assessment Current Active Medications: Generic Name Dose Route Start Last Admin Trade Name Freq PRN Reason Stop Dose Admin Acetaminophen 650 mg 09/28/24 02:23 Acetaminophen 325 Mg Tablet PO 10/28/24 02:22 Q6H PRN Fever >100.4 Acetaminophen 650 mg 09/28/24 02:23 Acetaminophen 325 Mg Tablet PO 10/28/24 02:22 Q6H PRN PAIN SCALE 1-3 (mild Hydrocodone Bitart/Acetaminophen 1 tab 09/28/24 02:23 Hydrocodone/Apap 5/325 Tablet PO 10/03/24 02:22 Q4HR PRN PAIN SCALE 4-10(Mod-Sev Dextrose 25 ml 09/28/24 02:23 Dextrose 50%-Water Inj 50 Ml Syringe IV 10/28/24 02:22 Q15MIN PRN BG 50-70 responsive npo pt Dextrose 50 ml 09/28/24 02:23 Dextrose 50%-Water Inj 50 Ml Syringe IV 10/28/24 02:22 Q15MIN PRN BG <50 OR BG <70 & pt unresponsive Enoxaparin Sodium 40 mg 09/28/24 09:00 09/29/24 09:30 Enoxaparin Sod Inj 40 Mg/0.4 Ml Syringe SC 10/12/24 08:59 40 mg QDAY KIRBY Administration Glucagon 1 mg 09/28/24 02:23 Glucagon Inj 1 Mg Vial IM Q15MIN PRN BG <70, and no IV access Ceftriaxone Sodium 2 gm/ 50 mls @ 100 mls/hr 09/28/24 10:53 09/29/24 09:31 Sodium Chloride IV 10/05/24 10:52 100 mls/hr QDAY KIRBY Administration Insulin Human Lispro 0 unit 09/28/24 07:30 09/29/24 07:46 Insulin Lispro (Admelog) 1 Unit/0.01 Ml Unit SC 10/28/24 07:29 Not Given AC [facility] Protocol Ondansetron HCl 4 mg 09/28/24 02:23 Ondansetron Inj 2 Mg/Ml Inj 2 Ml IVP 10/28/24 02:22 Q6H PRN NAUSEA OR VOMITING Protocol Pantoprazole Sodium 40 mg 09/29/24 09:00 09/29/24 09:30 Pantoprazole 40 Mg Tablet PO 10/29/24 08:59 40 mg QDAY KIRBY Administration Plan 59M with PMH of T2DM presented with dysuria, hematuria, and prior flank pain x2days found to have UA and imaging concerning for right pyelonephritis, now improving after initial ED management. #Pyelonephritis #Complicated UTI Patient presents with dysuria, transient hematuria, and prior bilateral flank pain, now resolved. UA positive for nitrites, leukocyte esterase, WBC, and hematuria CT A/P concerning for right pyelonephritis. Afebrile, hemodynamically stable, tolerating PO. WBC 11.7--> 9.2 --> 4.7 We will treat the patient for pyelonephritis and complicated UTI due to gender and diabetes. Urine culture positve for E.coli. Blood cultures negative at 24 hour camacho Plan: - Continue ceftriaxone to 2g IV qday. - Pending urine culture sensitivity to narrow down antibiotic coverage - Monitor for signs of clinical deterioration - Encourage oral hydration # Type 2 Diabetes Mellitus No known complications Current meds unknown. Not on insulin A1C: 6.3% Plan: - Check glucose AC/HS - SSI -Advised patient to stop taking jardiance as it increases the risk of UTIs and pyelonephritis and he will need to follow up with his PCP after discharge for DM management. # Benign Prostatic Hyperplasia History of enlarged prostate per daughter, reportedly diagnosed by physician in [place] (not current PCP). No current obstructive symptoms. Hematuria may be from infection but BPH may contribute. Plan: - Follow-up with PCP post-discharge - Recommend outpatient urology referral for hematuria work-up and BPH evaluation after resolution of infection Health Maintenance: Disposition: Admitted to [facility] Activity: As tolerated Diet: Carb consistent Code Status: Full DVT prophylaxis: Lovenox GI prophylaxis: Not indicated at this time ----- Plan discussed with attending physician Dr. Nichols and senior resident Dr. León West DO, PGY-1 Attending Provider Attestation/Addendum I, Brittany Nichols DO, attest that I was physically present for the moreno portions of the service and evaluated the patient with the resident and I reviewed and discussed the case with the resident and agree with the resident's findings and plans of care as documented above Patient seen and evaluated this AM. Patient reports feeling improved, no further episodes of hematuria. Pending final urine c/s, currently positive for GNR. Anticipate DC within next 24h. DC jardiance as this is the patient's second episode of UTI.
--- NOTE | 2024-09-29 15:48 | PC.SS ---
Rounding: Pending simons, DC plan tomorrow home
[2024-09-29] MEDS: INSULIN LISPRO (AdmeLOG) 1 UNIT/0.01 ML UNIT SC (18:13)
[2024-09-30] VITALS: BP 126/76; PULSE 80; RESP 15; TEMP 36.1; O2SAT 98
[2024-09-30 04:00] VITALS: BP 114/60; PULSE 75; RESP 13; TEMP 35.9; O2SAT 99
[2024-09-30 06:27] VITALS: PULSE 74; RESP 18; RESP 98
[2024-09-30 06:59] LABS: Basophils # (Auto) 0.0 Thou/mm3 (0.0-0.2); Basophils % (Auto) 1 % (0-2.5); Eosinophils # (Auto) 0.1 Thou/mm3 (0.0-0.5); Eosinophils % (Auto) 2 % (0-10); Hematocrit 39.7 % (41.0-53.0); Hemoglobin 13.9 g/dL (13.5-16.0); Immature Granulocytes Auto 0.02 Thou/mm3 (0.00-0.00); Lymphocytes # (Auto) 1.8 Thou/mm3 (1.0-4.8); Lymphocytes % (Auto) 38 % (10-50); Mean Corpuscular HGB Conc 35.0 g/dl (31.0-37.0); Mean Corpuscular Hemoglobin 30.6 pg (25.0-35.0); Mean Corpuscular Volume 87 fL (80-100); Monocytes # (Auto) 0.7 Thou/mm3 (0.0-0.8); Monocytes % (Auto) 14 % (0-12); Neutrophils # (Auto) 2.2 Thou/mm3 (1.8-7.7); Neutrophils % (Auto) 45 % (37-80); Nucleated Red Blood Cell # 0.00 Thou/mm3 (0.00-0.00); Nucleated Red Blood Cell % 0 /100 WBC (0); Platelet Count 238 Thou/mm3 (140-440); RDW Standard Deviation 39.9 fL (35.1-43.9); Red Blood Count 4.54 Miln/mm3 (4.50-5.90); White Blood Count 4.8 Thou/mm3 (3.8-10.6)
[2024-09-30 07:42] LABS: Anion Gap 9 (7-16); BUN/Creatinine Ratio 16 Ratio (12-20); Blood Urea Nitrogen 13 mg/dL (9-23); Calcium 9.5 mg/dL (8.3-10.6); Carbon Dioxide 27.8 mMol/L (20.0-31.0); Chloride 104 mMol/L (98-107); Creatinine (Component) 0.8 mg/dL (0.6-1.3); Estimated Creatinine Clearance 102.4 mL/min (>60); Glucose 115 mg/dL (74-106); Magnesium 1.9 mg/dL (1.6-2.6); Osmolality,Calculated 282 (275-295); Phosphorous 3.0 mg/dL (2.4-5.1); Potassium 4.6 mMol/L (3.4-5.1); Sodium 141 mMol/L (136-145); eGFR > 60 See Note
[2024-09-30 08:00] VITALS: BP 110/66; PULSE 65; RESP 15; TEMP 36.5; O2SAT 96
[2024-09-30] MEDS: PANTOPRAZOLE 40 MG TABLET PO (08:13)
[2024-09-30] MEDS: cefTRIAXone 2 GM in SODIUM CHLORIDE 0.9% (Popper) 50 ML IV (08:13)
[2024-09-30] MEDS: ENOXAPARIN SOD INJ 40 MG/0.4 ML SYRINGE SC (08:13)
--- NOTE | 2024-09-30 08:29 | PD.RESDS ---
Planned Discharge Date 09/30/24 DS: Providers Provider Date of admission: 09/28/24 02:24 Primary care physician: Physician No Primary/Family Admitting Provider: Danny Sue MD Attending Provider on Admission: Brittany Nichols DO Consults: 09/28/24 15:10 [facility] Referral - Knowledge Deficit Routine Comment: Positive screening for knowledge deficit needs. [facility] Referral - Transportation Routine Comment: Positive screening for transportation needs. Attending Provider on DC: Dr. Weiss Discharging Provider: Resident Willard Anticipated date of discharge: 09/30/24 DS: Diagnosis Problem List Completed Was Problem List Reviewed/Reconciled?: Yes Hospital Course Hospital Course Hospital course: This is a 59M with PMH of T2DM presented with dysuria, hematuria, and prior flank pain x2days found to have UA and imaging concerning for right pyelonephritis, which improved after initial ED management. UA positive for nitrites, leukocyte esterase, WBC, and hematuria. CT A/P concerning for right pyelonephritis. Patient was afebrile, hemodynamically stable, tolerating PO throughout his hospitalizations. WBC initially at 11.7 which trended down to 4.7 after initiation of IV rocephin 2g for complicated UTI and pyelonephritis. Urine culture was positive for Ecoli pansensitive to antibiotics. Blood culture negative. Patient was noted to be on Jardiance; we advised patient to stop taking this medication and talk to their PCP for an alternative medication for DM management as this increases the risk of future UTIs. In regards to patient's hematuria, we advised outpatient urology follow-up for hematuria work-up and BPH evaluation after resolution of infection Patient's all other medical problems were managed during their hospital course. Patient remains hemodynamically stable with stable vitals and labs. Patient is in stable condition for discharge with oral Cipro antibiotics for furtehr treatment of complicated UTI and pyelonephritis. All questions answered and ED return precautions given. #Pyelonephritis #Complicated UTI # Type 2 Diabetes Mellitus # Benign Prostatic Hyperplasia Stop taking Jardiance. Continue other home medications as prescribed. Take Ciprofloxacin 500 mg twice daily for 5 days. Follow up with PCP within 2 weeks. Should your symptoms recur or worsen patient is instructed to return to the ED Plan discussed with attending physician Dr. Weiss and senior resident Dr. Jessica West DO, PGY-1 Status at Discharge Functional status at discharge: independent ambulation Overall status at discharge: patient is back to baseline Time Spent with Patient Time attestation: Total time spent providing and/or coordinating discharge services: Time spent: Greater than 30 minutes Exam Vital Signs Temp Pulse Resp BP Pulse Ox O2 Del Method O2 Flow Rate 96.7 F L 74 18 114/60 99 Room Air 1 09/30/24 04:00 09/30/24 06:27 09/30/24 06:27 09/30/24 04:00 09/30/24 04:00 09/30/24 04:00 09/29/24 07:27 Narrative Exam General: Alert, comfortable, no acute distress HEENT: No conjunctival injection, mucosa moist Neck: Supple, no LAD Lungs: Clear to auscultation bilaterally Heart: RRR, no murmurs Abdomen: Soft, nontender to palpation, no masses or suprapubic tenderness Back: No CVA tenderness Extremities: No edema Neuro: AOx3, no focal deficits Skin: Warm, dry, no rashes Discharge Plan Plan Patient Disposition: HOME (Self Care) Patient condition on transfer: Stable Care Plan Goals: Stop taking Jardiance. Continue other home medications as prescribed. Take Ciprofloxacin 500 mg twice daily for 5 days. Follow up with PCP within 2 weeks. Should your symptoms recur or worsen patient is instructed to return to the ED Deje de dottie Jardiance. Contin?e tomando otros medicamentos recetados. [place] ciprofloxacino 500 mg dos veces al d?a mary 5 d?as. Consulte con naik m?dico de atenci?n primaria dentro de las 2 semanas. Si los s?ntomas reaparecen o empeoran, se le indica al paciente que regrese a urgencias. Prescriptions/Referrals Prescriptions/Med Rec: New Januvia 100 mg tablet 100 mg PO QDAY Qty: 30 0RF ciprofloxacin 500 mg/5 mL suspension,microcapsule recon 500 mg PO BID 5 Days Qty: 50 0RF Continued glipizide 5 mg tablet 5 mg PO QDAY omeprazole 40 mg capsule,delayed release(DR/EC) 40 mg PO QDAY Discontinued Januvia 100 mg tablet 100 mg PO QDAY Jardiance 25 mg tablet 25 mg PO QAM Referrals: No Primary/Family,Physician [Primary Care Provider] - Patient/Caregiver Discharge Instructions Education Materials: Urinary Tract Infections in Men, Diabetes: Living Your Life, Diabetes: Meal Planning, ED Pyelonephritis, Male (Adult) Print Language: Yoruba Stand Alone Forms: Marie Award Info., Patient Portal Info Letter, Work/Release Restrictions Discharge Order Discharge Orders: Discharge (Routine); Ordered 09/30/24 Ordered By: Francisco Lopez Quality Discharge Quality Measures VTE prophylaxis MD Attestestation MD Attestation I Teddy Weiss MD reviewed the note and agree with the resident's assessment & plan with modifications/additions/exceptions as below. I have personally reviewed labs, imaging, home meds/prior records, examined the patient, formulated and discussed management plan with the IM team. Patient admitted for E. coli pyelonephritis. Patient is stable for discharge, will discharge on Cipro 500 mg twice daily to complete 7 days.
[2024-09-30 12:00] VITALS: BP 111/65; PULSE 63; RESP 14; TEMP 36.6; O2SAT 95
--- NOTE | 2024-09-30 12:01 | PC.NURSE ---
Notified MD Calhoun of pts need for drs note. Per MD will round and provide drs note soon.
== END 2024-09-30 13:20 | disposition home or self-care (01) | DRG 463 ==
LOC: SERX 09-28 02:17 → SERHOLD 09-28 02:43 → S3SX 09-28 14:54
PROVIDERS: Physician Assistant; Admitting Provider Student in an Organized Health Care Education/Training Program; Emergency Provider Emergency Medicine; Visit Provider Internal Medicine
DX: N10 Acute pyelonephritis (principal); E11.9 Type 2 diabetes mellitus without complications; R31.0 Gross hematuria; N39.0 Urinary tract infection, site not specified; N40.0 Benign prostatic hyperplasia without lower urinary tract symptoms; Z79.899 Other long term (current) drug therapy
CPT/HCPCS: 36415; 71045; 74176; 80048; 80053; 80307; 81001; 82248; 83036; 83605; 83735; 84100; 84145; 85025; 85652; 86140; 87040; 87077; 87086; 87186; 87400; 87811; 96361; 96365; 96366; 96375; 99283; J0696; J1650; J1815; J1885; J2405; J3475; J7030; J7050; A9270